=== PATIENT | female | born 1965 | race Caucasian/White ===

== ENCOUNTER 2021-10-31 13:28 | Emergency (ER) | payer OTHER, SELFPAY ==
--- NOTE | ~2021-10-31 | CT_ITS ---
EXAMINATION: CT brain wo con DATE: 10/31/2021 14:22 INDICATION: head injury . TECHNIQUE: Computed tomography (CT) of the head was performed without intravenous contrast. The mA wa s adjusted according to patient size. Iterative reconstruction technique was employed. The dose-lengt h product was 681.00 mGy-cm. COMPARISON: None FINDINGS: No acute intracranial hemorrhage or extra-axial fluid collection. No hydrocephalus, mass, or herniation. No acute ischemic infarct. Unremarkable dural venous sinus attenuation. No acute osseous abnormality. Right frontal and orbital soft tissue contusion The aerated spaces are clear. IMPRESSION: No acute intracranial process. Reviewed, dictated and finalized at location K.
--- NOTE | ~2021-10-31 | CT_ITS ---
EXAMINATION: CT facial & cervical spine wo DATE: 10/31/2021 14:23 INDICATION: head injury TECHNIQUE: Computed tomography (CT) of the maxillofacial region and cervical spine was performed with out intravenous contrast. Automated exposure control and iterative reconstruction technique were empl oyed. The dose-length product was 726.50 mGy-cm. COMPARISON: None FINDINGS: CERVICAL: Vertebral Body Alignment: Intact. Craniocervical and atlantoaxial alignment: Mild degenerative change. Alignment intact. Osseous structures/fracture: No evidence of a lytic or blastic process in the visualized spine. No e vidence of acute fracture. Cervical soft tissues: The paraspinal soft tissues planes are maintained. 3.2 cm right thyroid mass. Degenerative changes: No significant degenerative changes. FACE: Soft Tissues: Right orbital/frontal soft tissue contusion and hematoma. Facial bones: No acute fracture. No lytic or blastic process. Eyes: The globes are intact. The soft tissue planes of the orbits are maintained. Paranasal Sinuses: The visualized aerated spaces are clear. Foreign Bodies: No radiopaque foreign bodies. Other Findings: Periodontal disease. IMPRESSION: No acute fracture or traumatic malalignment in the cervical spine. No acute facial bone fracture. 3.2 cm right thyroid mass, recommend outpatient thyroid ultrasound for further characterization. Periodo ntal disease. Reviewed, dictated and finalized at location K. IMPRESSION: No acute fracture or traumatic malalignment in the cervical spine. No acute fac ial bone fracture. 3.2 cm right thyroid mass, recommend outpatient thyroid ultr asound for further characterization. Periodontal disease.
[2021-10-31 13:30] VITALS: BP 180/107; PULSE 77; RESP 20; TEMP 36.7; O2SAT 98
--- NOTE | 2021-10-31 14:07 | ED.FALL ---
HPI - Fall General Chief Complaint: Fall Stated Complaint: Fall, Head injury Time Seen by Provider: 10/31/21 13:37 Source: patient Mode of arrival: ambulatory Limitations: no limitations History of Present Illness HPI Narrative: This is a 56 year old female that presents to the ER after a head injury this morning. Reports she tripped while working out. Fell forward and hit her head on the floor. She did not lose consciousness. Denies any prodromal symptoms or any other joint pain. She has been ambulatory since the fall. Denies vision changes, vomiting, numbness, or weakness. Related Data Allergies Allergy/AdvReac Type Severity Reaction Status Date / Time No Known Allergies Allergy Unverified 02/19/19 11:44 Review of Systems Review of Systems: CONSTITUTIONAL: Denies fever EYES: Denies visual changes GASTROINTESTINAL: Denies vomiting MUSCULOSKELETAL: Denies back pain, joint pain, or myalgia. NEUROLOGIC: Denies numbness, or weakness. All systems reviewed & are unremarkable except as noted in HPI and below PMFSH Past Medical History Medical History (Updated 10/31/21 @ 15:29 by Mia Enrique PA-C) Colon cancer screening Family History Family History Mother Family history of elevated blood lipids Family history of renal cell carcinoma Father Family history of elevated blood lipids, Onset Age: 75 Family history of coronary artery disease, Onset Age: 75 Patient's father is , Onset Age: 75 Family history of cardiovascular disease, Onset Age: 75 Social History Social History Smoking status: Never smoker Second hand tobacco smoke exposure: No Alcohol intake: never Exam Narrative: GENERAL: Well-appearing, well-nourished, and in no acute distress. HEAD: Normocephalic. Ecchymosis noted to the right upper eyelid EYES: PERRLA and EOMI. ENT: Nares clear, no rhinorrhea or epistaxis. Mucous membranes moist. Oropharynx without tonsillar hypertrophy exudate or other lesions. Bilateral TMs pearly carter non-bulging NECK: Supple. No adenopathy or masses. CHEST: Clear to auscultation. No respiratory distress. No wheezes rales or rhonchi HEART: Regular rate and rhythm. No murmur heard. Normal peripheral pulses. EXTREMITIES: Normal range of motion. No edema. Strength equal in bilateral upper extremities (5/5) SKIN: Warm, dry, no rash. NEURO: No focal deficits. Alert and oriented x3. Cranial nerves II through XII grossly intact PSYCH: Normal mood and affect Course Vital Signs Vital signs: Vital Signs Temperature 98.1 F 10/31/21 13:30 Pulse Rate 77 10/31/21 13:30 Respiratory Rate 20 10/31/21 13:30 Blood Pressure 180/107 H 10/31/21 13:30 Pulse Oximetry 98 10/31/21 13:30 Oxygen Delivery Room Air 10/31/21 13:30 Temperature 98.1 F 10/31/21 13:30 Pulse Rate 77 10/31/21 13:30 Respiratory Rate 20 10/31/21 13:30 Blood Pressure 150/97 H 10/31/21 15:26 Pulse Oximetry 98 10/31/21 13:30 Oxygen Delivery Room Air 10/31/21 13:30 MDM - Fall MDM Narrative Medical decision making narrative: Patient presents to the emergency department for a fall today with head injury. Patient is neurologically intact. CT scan of the brain, cervical, and facial bones without acute abnormalities. Does show a 3.2 cm right thyroid mass which will need outpatient follow-up with an ultrasound. Patient and family updated on case findings. Instructed on care of concussion. She is to follow-up with her primary care doctor. She was given warnings to return to the ER Blood pressure 100 very elevated on arrival, this improved with treatment of her pain. Instructed to continue to monitor this and follow-up with her primary as well for this. Imaging Data Radiologist's impression: ITS Impressions Head CT 10/31/21 14:24 IMPRESSION: No acute intracranial pro
[2021-10-31] MEDS: ACETAMINOPHEN 500 MG TABLET 1000 MG PO (14:34)
[2021-10-31 15:26] VITALS: BP 150/97
== END 2021-10-31 15:40 | disposition home or self-care (01) ==
PROVIDERS: Emergency Provider Family Medicine; PCP Hospitalist
DX: S09.90XA Unspecified injury of head, initial encounter (principal); I10 Essential (primary) hypertension; E07.9 Disorder of thyroid, unspecified; W01.0XXA Fall on same level from slipping, tripping and stumbling without subsequent striking against object, initial encounter
CPT/HCPCS: 70450; 70486; 72125; 99284; A9270